=== PATIENT | female | born 1990 ===

== ENCOUNTER 2020-04-05 12:26 | Outpatient (CLI) | payer OTHER | END 2020-04-05 12:35 | disposition home or self-care (01) | LOC: LAB 12:26 | PROVIDERS: ATTEND Obstetrics & Gynecology Gynecologic Oncology | DX: Z20.828 Contact with and (suspected) exposure to other viral communicable diseases (principal); B34.8 Other viral infections of unspecified site; N80.1 Endometriosis of ovary; Z01.818 Encounter for other preprocedural examination; R10.2 Pelvic and perineal pain; D64.89 Other specified anemias; N39.0 Urinary tract infection, site not specified; R97.1 Elevated cancer antigen 125 [CA 125] ==

== ENCOUNTER 2020-04-11 06:06 | Day surgery (SDC) | payer OTHER | END 2020-04-11 17:30 | disposition home or self-care (01) | LOC: CIR.AMB 06:06 → ADM 08:30 → CIR.AMB 13:45 | PROVIDERS: ATTEND Obstetrics & Gynecology Gynecologic Oncology | DX: N83.291 Other ovarian cyst, right side (principal) ==